=== PATIENT | male | born 1990 | race Asian ===

== ENCOUNTER 2018-12-22 00:30 | Emergency (ER) | payer OTHER ==
[2018-12-22] MEDS ORDERED: Ondansetron INJ* 2 MG/ML VIAL IV ONE (00:40)
[2018-12-22] MEDS ORDERED: NS 0.9% 1000 ML** 1,000 ML IV ONE (00:40)
[2018-12-22 00:56] LABS: ABS Basophils 0 10^3/ul (0-0.2); ABS Eosinophils 0 10^3/ul (0-0.6); ABS Lymphocytes 1.9 10^3/ul (1.0-4.8); ABS Monocytes 0.5 10^3/ul (0-0.8); ABS Neutrophils 12.4 10^3/ul (1.5-7.7); ABS Nucleated RBC 0 10^3/ul; Eosinophil % 0.1 %; Hematocrit 49 % (42-52); Hemoglobin 16.6 g/dl (14.0-18.0); Mean Corpuscular HGB Conc 34 g/dl (31-36); Mean Corpuscular Hemoglobin 30 pg (27-31); Mean Corpuscular Volume 87 fL (80-94); Mean Platelet Volume 7.9 fL (7.4-10.4); Nucleated Red Blood Cells % 0.1; Platelet Count 216 10^3/ul (150-450); Red Blood Count 5.55 10^6/ul (4.00-5.40); Red Cell Distribution Width 13 % (10.5-15); White Blood Count 14.9 10^3/ul (3.5-10.8)
[2018-12-22 01:13] LABS: ALT 14 U/L (7-52); AST 19 U/L (13-39); Albumin 4.8 g/dL (3.2-5.2); Albumin/Globulin Ratio 1.8 (1-3); Alkaline Phosphatase 35 U/L (34-104); Anion Gap 9 mmol/L (2-11); BUN/Creatinine Ratio 19.6 (8-20); Blood Urea Nitrogen 19 mg/dL (6-24); C Reactive Protein < 1.00 mg/L (<8.01); CO2 Carbon Dioxide 27 mmol/L (22-32); Calcium 9.8 mg/dL (8.6-10.3); Chloride 103 mmol/L (101-111); EGFR African American 113.2 (>60); EGFR Non-African American 93.6 (>60); Globulin 2.7 g/dL (2-4); Glucose 105 mg/dL (70-100); Potassium 3.9 mmol/L (3.5-5.0); Sodium 139 mmol/L (135-145); Total Protein 7.5 g/dL (6.4-8.9)
[2018-12-22] MEDS ORDERED: Morphine VIAL* 10 MG/ML 1 ML VIAL IV ONE (01:54)
--- NOTE | 2018-12-22 02:02 | ED ---
Abdominal Pain/Male - HPI Summary HPI Summary: Patient complains of sudden onset mid abdominal pain and vomiting 3 starting after dinner at 7:30 this evening. Abdominal pain described as intermittent with intense spikes, worst 7/10 pain. Patient denies fever, cough, sore throat , CP, SOB, diarrhea, change in urine, change in BM, penis or testicular symptoms. Medical history is none. Abdominal surgical history is none. - History of Current Complaint Chief Complaint: EDAbdPain Stated Complaint: ABD PAIN/VOMITING Time Seen by Provider: 12/22/18 00:38 Hx Obtained From: Patient Onset/Duration: Sudden Onset Timing: Intermittent Severity Initially: Mild Severity Currently: Moderate Pain Intensity: 3 Pain Scale Used: 0-10 Numeric Location: Epigastric Radiates: No Character: Sharp, Cramping Aggravating Factor(s): Nothing Alleviating Factor(s): Nothing Associated Signs And Symptoms: Positive: Nausea, Vomiting - Allergies/Home Medications Allergies/Adverse Reactions: Allergies Allergy/AdvReac Type Severity Reaction Status Date / Time No Known Allergies Allergy Verified 12/22/18 00:36 Home Medications: Home Medications NK [No Home Medications Reported] 12/22/18 [History Confirmed 12/22/18] PMH/Surg Hx/FS Hx/Imm Hx Endocrine/Hematology History: Denies: Hx Anticoagulant Therapy Cardiovascular History: Denies: Hx Cardiac Arrest History: Denies: Hx Dialysis Sensory History: Denies: Hx Eye Prosthesis Opthamlomology History: Denies: Hx Legally Blind EENT History: Denies: Hx Deafness Neurological History: Denies: Hx Dementia Psychiatric History: Denies: Hx Autism Infectious Disease History: No Infectious Disease History: Denies: Traveled Outside the [place] in Last 30 Days - Social History Alcohol Use: None Substance Use Type: Reports: None Smoking Status (MU): Never Smoked Tobacco Review of Systems Constitutional: Negative Eyes: Negative ENT: Negative Cardiovascular: Negative Respiratory: Negative Positive: Abdominal Pain, Vomiting, Nausea Genitourinary: Negative Musculoskeletal: Negative Skin: Negative Neurological: Negative Psychological: Normal All Other Systems Reviewed And Are Negative: Yes Physical Exam - Summary Physical Exam Summary: Patient tender epigastrically. Abdominal exam otherwise unremarkable. Triage Information Reviewed: Yes Vital Signs On Initial Exam: Initial Vitals Temp Pulse Resp BP Pulse Ox 97.7 F 74 16 103/73 96 12/22/18 00:30 12/22/18 00:30 12/22/18 00:30 12/22/18 00:30 12/22/18 00:30 Vital Signs Reviewed: Yes Appearance: Positive: Well-Appearing Skin: Positive: Warm Head/Face: Positive: Normal Head/Face Inspection Eyes: Positive: Normal Neck: Positive: Supple Respiratory/Lung Sounds: Positive: Clear to Auscultation Cardiovascular: Positive: Normal Abdomen Description: Positive: Other: Musculoskeletal: Positive: Normal Neurological: Positive: Normal Psychiatric: Positive: Normal AVPU Assessment: Alert - Carlos Coma Scale Best Eye Response: 4 - Spontaneous Best Motor Response: 6 - Obeys Commands Best Verbal Response: 5 - Oriented Coma Scale Total: 15 Diagnostics - Vital Signs Vital Signs Temp Pulse Resp BP Pulse Ox 12/22/18 01:03 55 90 12/22/18 01:02 75 113/66 89 12/22/18 00:30 97.7 F 74 16 103/73 96 - Laboratory Lab Results: Lab Results 12/22/18 12/22/18 12/22/18 Range/Units 00:47 00:47 00:47 WBC 14.9 H (3.5-10.8) 10^3/ul RBC 5.55 H (4.00-5.40) 10^6/ul Hgb 16.6 (14.0-18.0) g/dl Hct 49 (42-52) % MCV 87 (80-94) fL MCH 30 (27-31) pg MCHC 34 (31-36) g/dl RDW 13 (10.5-15) % Plt Count 216 (150-450) 10^3/ul MPV 7.9 (7.4-10.4) fL Neut % (Auto) 83.3 % Lymph % (Auto) 13.0 % Wheeler % (Auto) 3.4 % Eos % (Auto) 0.1 % Baso % (Auto) 0.2 % Absolute Neuts (auto) 12.4 H (1.5-7.7) 10^3/ul Absolute Lymphs (auto) 1.9 (1.0-4.8) 10^3/ul Absolute Monos (auto) 0.5 (0-0.8) 10^3/ul Absolute Eos (auto) 0 (0-0.6) 10^3/ul Absolute Basos (auto) 0 (0-0.2) 10^3/ul Absolute Nucleated RBC 0 10^3/ul Nucleated RBC % 0.1 Sodium 139 (135-145) mmol/L Potassium 3.9 (3.5-5.0) mmol/L Chloride 103 (101-111) mmol/L Carbon Dioxide 27 (22-32) mmol/L Anion Gap 9 (2-11) mmol/L BUN 19 (6-24) mg/dL Creatinine 0.97 (0.67-1.17) mg/dL Est GFR ( Amer) 113.2 (>60) Est GFR (Non-Af Amer) 93.6 (>60) BUN/Creatinine Ratio 19.6 (8-20) Glucose 105 H (70-100) mg/dL Lactic Acid 1.1 (0.5-2.0) mmol/L Calcium 9.8 (8.6-10.3) mg/dL Total Bilirubin 0.70 (0.2-1.0) mg/dL AST 19 (13-39) U/L ALT 14 (7-52) U/L Alkaline Phosphatase 35 (34-104) U/L C-Reactive Protein < 1.00 (<8.01) mg/L Total Protein 7.5 (6.4-8.9) g/dL Albumin 4.8 (3.2-5.2) g/dL Globulin 2.7 (2-4) g/dL Albumin/Globulin Ratio 1.8 (1-3) Lipase 34 (11.0-82.0) U/L Result Diagrams: 12/22/18 00:47 12/22/18 00:47 Lab Statement: Any lab studies that have been ordered have been reviewed, and results considered in the medical decision making process. - CT ABD/PELV CT CT Interpretation Completed By: Radiologist Summary of CT Findings: No avidence of acute intra-abdominal pathology. Nonvisualization of the appendix. Abdominal Pain Fem Course/Dx - Course Course Of Treatment: Patient complains of sudden onset mid abdominal pain and vomiting 3 starting after dinner at 7:30 this evening. Abdominal pain described as intermittent with intense spikes, worst 7/10 pain. Patient denies fever, cough, sore throat, CP, SOB, diarrhea, change in urine, change in BM, penis or testicular symptoms. Medical history is none. Abdominal surgical history is none. Physical exam:Patient tender epigastrically. Abdominal exam otherwise unremarkable. Vital signs within normal limits. WBC 14.9. Labs otherwise unremarkable. Patient initially refused pain medication, but on reexam states pain is progressing. CT abdomen and pelvis with contrast ordered. Patient will be signed out to Dr. Barreto pending results of CT. - Diagnoses Provider Diagnoses: Abdominal pain Discharge - Sign-Out/Discharge Documenting (check all that apply): Sign-Out Patient Signing out patient TO: Chuck Barreto Patient Received Moderate/Deep Sedation with Procedure: No - Discharge Plan Condition: Stable Disposition: HOME Referrals: [facility] [place] [facility] [Outside] Additional Instructions: Please follow up with your PCP in the next 1-2 days. Return to the ED with any new or worsening symptoms. - Billing Disposition and Condition Condition: STABLE Disposition: Home
[2018-12-22] MEDS ORDERED: Iohexol 300* (CONTRAST) 10 ML SDV IV ONE (03:07)
--- NOTE | 2018-12-22 05:46 | ED ---
Progress - Progress Note Progress Note: 0543 - Pt's ABD/PELV CT has returned with negative findings and he will be sent home with a dx of abdominal pain. - EKG/XRAY/CT CT: No evidence of acute intra-abdominal pathology. Nonvisualization of the rome Course/Dx - Course Course Of Treatment: Receiving signout from MARION Peñaloza. Pt's CT scan came back negative and he will be sent home with a dx of abd pain. He is presently stable and agreeable with this plan. - Diagnoses Provider Diagnoses: Abdominal pain Discharge - Sign-Out/Discharge Documenting (check all that apply): Patient Departure, Receiving Sign-Out Receiving patient FROM: Jonathan Robles Patient Received Moderate/Deep Sedation with Procedure: No - Discharge Plan Condition: Stable Disposition: HOME Referrals: [facility] [place] [facility] [Outside] Additional Instructions: Please follow up with your PCP in the next 1-2 days. Return to the ED with any new or worsening symptoms. - Attestation Statements Document Initiated by Scribe: Yes Documenting Scribe: Meena Boyd Provider For Whom Scribe is Documenting (Include Credential): Chuck Barreto MD. Scribe Attestation: Meena Renner, scribed for Chuck Barreto MD. on 12/22/18 at 0546. Status of Scribe Document: Ready
== END 2018-12-22 05:51 | disposition home or self-care (01) ==
LOC: ED 00:30
DX: R10.13 Epigastric pain (principal); R11.2 Nausea with vomiting, unspecified
CPT/HCPCS: 36415; 74177; 80053; 83605; 83690; 85025; 86140; 96374; 96375; 99283; J2270; J2405; Q9967

== ENCOUNTER 2019-03-01 12:40 | Emergency (ER) | payer OTHER ==
[2019-03-01 13:28] LABS: Rapid Strep Molecular Negative (Negative)
--- NOTE | 2019-03-01 16:01 | ED ---
Throat Pain/Nasal Congestion - HPI Summary HPI Summary: 28 year old male presents to the emergency room for evaluation of right neck swelling and throat pain. This problem has been present for 1 week and is constant. Pt states he is having a hard time swallowing. He was seen at [facility] on Thursday and had an x-ray done which showed a small mass on his right neck. He was sent by them to get an ultrasound of his neck today. Pt also has some mild ear pain on his right ear. This has been present for 2 days. He states he uses ear buds often. Pt denies fever, chills, N/V, diarrhea, SOB, chest pain, cough, congestion, and tinnitus. - History of Current Complaint Chief Complaint: EDThroatPain Time Seen by Provider: 03/01/19 13:03 Hx Obtained From: Patient Severity: Mild Associated Signs And Symptoms: Negative: Drooling, Wheezing, Hoarseness Cough: None - Epiglottits Risk Factors Epiglottis Risk Factors: Negative - Allergies/Home Medications Allergies/Adverse Reactions: Allergies Allergy/AdvReac Type Severity Reaction Status Date / Time No Known Allergies Allergy Verified 03/01/19 08:52 Home Medications: Home Medications NK [No Home Medications Reported] 03/01/19 [History Confirmed 03/01/19] PMH/Surg Hx/FS Hx/Imm Hx Previously Healthy: Yes Endocrine/Hematology History: Denies: Hx Anticoagulant Therapy, Hx Diabetes Cardiovascular History: Denies: Hx Cardiac Arrest, Hx Hypertension History: Denies: Hx Dialysis, Hx Renal Disease Sensory History: Denies: Hx Eye Prosthesis, Hx Legally Blind, Hx Deafness Opthamlomology History: Denies: Hx Eye Prosthesis, Hx Legally Blind Neurological History: Denies: Hx Dementia Psychiatric History: Denies: Hx Autism Infectious Disease History: No Infectious Disease History: Denies: Traveled Outside the [place] in Last 30 Days - Social History Alcohol Use: None Substance Use Type: Reports: None Smoking Status (MU): Never Smoked Tobacco Review of Systems Constitutional: Negative Negative: Fever, Chills, Fatigue, Skin Diaphoresis Eyes: Negative Positive: Sore Throat, Ear Ache - right. Negative: Nasal Discharge Cardiovascular: Negative Negative: Palpitations, Chest Pain Respiratory: Negative Negative: Shortness Of Breath, Cough Gastrointestinal: Negative Negative: Abdominal Pain, Vomiting, Diarrhea, Nausea Musculoskeletal: Negative Skin: Negative Neurological: Negative Negative: Headache, Weakness, Paresthesia, Numbness All Other Systems Reviewed And Are Negative: Yes Physical Exam Triage Information Reviewed: Yes Vital Signs On Initial Exam: Initial Vitals Temp Pulse Resp BP Pulse Ox 98.7 F 76 18 127/76 99 03/01/19 12:47 03/01/19 12:47 03/01/19 12:47 03/01/19 12:47 03/01/19 12:47 Vital Signs Reviewed: Yes Appearance: Positive: Well-Appearing, No Pain Distress, Well-Nourished Skin: Positive: Warm, Skin Color Reflects Adequate Perfusion, Dry Head/Face: Positive: Normal Head/Face Inspection Eyes: Positive: Normal, EOMI, Conjunctiva Clear ENT: Positive: Hearing grossly normal, Pharyngeal erythema, TMs normal, Uvula midline, Other - Mild redness in right ear canal. No pain or tenderness elicited on palpation Neck: Positive: Supple, Tenderness @ - right anterior neck, Enlarged Nodes @ - right anterior neck Respiratory/Lung Sounds: Positive: Clear to Auscultation, Breath Sounds Present Cardiovascular: Positive: Normal, RRR, Pulses are Symmetrical in both Upper and Lower Extremities Musculoskeletal: Positive: Normal, Strength/ROM Intact Neurological: Positive: Normal, Sensory/Motor Intact, Alert, Oriented to Person Place, Time, Facial Symmetry, Speech Normal Diagnostics - Vital Signs Vital Signs Temp Pulse Resp BP Pulse Ox 03/01/19 12:47 98.7 F 76 18 127/76 99 - Laboratory Lab Results: Lab Results 03/01/19 Range/Units Unknown Group A Strep Rapid Negative (Negative) Lab Statement: Any lab studies that have been ordered have been reviewed, and results considered in the medical decision making process. EENT Course/Dx - Course Course Of Treatment: Pt presents with sore throat and ear pain on his right side. He was sent by [facility] for an ultrasound of a right neck mass found on x-ray. Pt reports no fevers, cough, N/V. His exam reveals a mildly irritated right eat canal with no exudates or tenderness. He was advised it does not appear infected and it is likely irritated from his ear bud use. Neck ultrasound reveals an enlarged lymph node on his right side. His rapid strep test was negative. Pt informed of his ultrasound results and was advised his symptoms are likely due to a viral infection that will resolve by itself. He instructed to take OTC ibuprofen/tylenol as needed for pain and follow up with [facility]. - Differential Diagnoses Differential Diagnoses: Otitis Media, Pharyngitis, Tonsilitis - Diagnoses Provider Diagnoses: Lymphadenopathy of right cervical region, Pharyngitis, Ear pain, right Discharge - Sign-Out/Discharge Documenting (check all that apply): Patient Departure Patient Received Moderate/Deep Sedation with Procedure: No - Discharge Plan Condition: Stable Disposition: HOME Referrals: No Primary Care Phys,NOPCP [Primary Care Provider] - Additional Instructions: Ibuprofen 600mg three times daily x 5 days Tylenol 650mg three times daily x 5 days if symptoms persist If you develop worsening symptoms or fevers - return to the ED Please follow up with [facility] - Billing Disposition and Condition Condition: STABLE Disposition: Home
[2019-03-01 16:07] VITALS: BP 128/87
== END 2019-03-01 16:06 | disposition home or self-care (01) ==
LOC: ED 12:40
DX: R59.0 Localized enlarged lymph nodes (principal); J02.9 Acute pharyngitis, unspecified; H92.01 Otalgia, right ear
CPT/HCPCS: 76536; 87651; 99282